=== PATIENT | male | born 1990 | race Two or more races ===

== ENCOUNTER 2022-06-15 06:49 | Emergency (ER) | payer OTHER ==
[~2022-06-15] VITALS: Ht 180.3 cm; Wt 113.5 kg
[2022-06-15 07:26] VITALS: BP 146/68
[2022-06-15] MEDS ORDERED: ACETAMINOPHEN 500 MG TAB PO ONE (07:45)
[2022-06-15] MEDS ORDERED: KETOROLAC TROMETH 30 MG/ML 1ML VIAL IM ONE (09:15)
[2022-06-15] MEDS ORDERED: IBUP600T28 PO ×2 (09:48→09:52)
[2022-06-15] MEDS ORDERED: CYCL-837 PO ×2 (09:48→09:52)
== END 2022-06-15 10:00 | disposition home or self-care (01) ==
LOC: ER 06:49 → EDBD 06:49 → ER 10:00
DX: S16.1XXA Strain of muscle, fascia and tendon at neck level, initial encounter (principal); S29.012A Strain of muscle and tendon of back wall of thorax, initial encounter; S20.219A Contusion of unspecified front wall of thorax, initial encounter; S00.93XA Contusion of unspecified part of head, initial encounter; Z79.1 Long term (current) use of non-steroidal anti-inflammatories (NSAID); Z79.899 Other long term (current) drug therapy; V47.5XXA Car driver injured in collision with fixed or stationary object in traffic accident, initial encounter; Y93.89 Activity, other specified; Y92.410 Unspecified street and highway as the place of occurrence of the external cause; Y99.8 Other external cause status
CPT/HCPCS: 70450; 71250; 72125; 72128; 96372; 99284; J1885